=== PATIENT | male | born 1945 | race Caucasian/White ===

== ENCOUNTER 2016-10-10 07:04 | Emergency (ER) | payer MEDICARE ==
[2016-10-10 07:36] LABS: URINE MUCUS NONE SEEN (Up to 25%); URINE SQUAMOUS EPITHELIAL CELL NONE SEEN (<= 15/hpf); URINE WBC NONE SEEN (0-4/hpf)
[2016-10-10] MEDS ORDERED: KETOROLAC TROMETHAMINE 60 MG/2 ML VIAL ONE (07:40)
[2016-10-10 07:44] LABS: URINE BACTERIA NONE SEEN (<10/hpf)
--- NOTE | 2016-10-10 08:39 | CT REPORT ---
HISTORY: Left flank pain, hematuria COMPARISON: None. TECHNIQUE: This examination was performed using automated exposure control, adjustment of mA or kV according to patient size, and/or use of iterative reconstruction technique. Axial contiguous images of the abdome n and pelvis were obtained without oral or IV contrast, coronal reformat images also performed. FINDINGS: The kidneys are normal in size and shape bilaterally. 3 small stones in the left collecting system ar e noted, and measure 1 to 2 mm. There is mild hydronephrosis. There are 2 small stones in the left mi d ureter measuring up to 2 mm in maximum size. These are noted at the L4-5 level. No other stones on the left. On the right there are 3 small stones which are nonobstructing measuring 1 to 2 mm. No ureteral stone s. The bladder is normal. The visualized lung parenchyma and cardiac structures are unremarkable. There is no hepatic mass or intrahepatic biliary dilatation identified on limited noncontrast imaging . 2 large gallstones are noted. No evidence of acute cholecystitis. The spleen is unremarkable. Th ere is no pancreatic mass or ductal dilatation. The adrenal glands are unremarkable. The stomach, small bowel and large bowel are unremarkable. There is no free intraperitoneal fluid or gas. There is no mesenteric edema or inflammatory process. Vascular structures of the abdomen and pelvis are unremarkable. No pathologic adenopathy is identified. There is normal alignment to the l umbar spine. No hernia. IMPRESSION: 2 small stones measuring 1 and 2 mm in the left mid ureter at the level of L4-5 causing mild hydronep hrosis. 3 small, 1 to 2 mm stones noted within each kidney, not causing obstruction. Several large gallstones without evidence of acute cholecystitis. Final Electronic Signature: This report was electronically signed by Iain Rios MD on 10/10/2016 8 :36 AM. lawanda /
--- NOTE | 2016-10-10 09:23 | ER PHYSICIAN DOCUMENTATION ---
Physician Documentation [facility] Name:Jensen Mora Age:71 yrs Sex:Male :1945 Arrival Date:10/10/2016 Time:07:04 Bed4 Private MD:Torsten Pires EDJensen Person Disposition: 10/10/16 08:49 Discharged to Home/Self Care. Impression: Kidney Stone. - Condition is Good. - Discharge Instructions: KIDNEY STONE w/ Colic. - Prescriptions for Percocet 5- 325 mg Oral Tablet - take 1 tablet by ORAL route every 6 hours As needed; 20 tablet. Flomax 0.4 mg Oral - take 1 capsule by ORAL route once daily 1/2 hour following the same meal each day; 14 capsule. Zofran 4 mg Oral Tablet - take 1-2 tablet by ORAL route every 4-6 hours As needed; 10 tablet. - Medical Reconciliation form form. - Follow up: Torsten Pires MD; When: 2 - 3 days; Reason: Continuance of care. - Problem is new. - Symptoms have improved. HPI: 10/10 07:30 This 71 yrs old Male presents to ER via Private Vehicle with complaints of jm Abdominal Pain. 07:30 The patient presents with abdominal pain in the lower abdomen. Onset: The jm symptoms/episode began/occurred today. The symptoms do not radiate. Associated signs and symptoms: Pertinent negatives: diarrhea, dysuria. Associated signs and symptoms: Pertinent positives: hematuria. The symptoms are described as constant, sharp. Modifying factors: the symptoms are aggravated by nothing. Severity of pain: in the emergency department the pain is a 5 / 10. The patient has experienced a previous episode, many years ago, possible kidney stone. . The patient has not recently seen a physician. Pt has pain and hematuria, so he came to the ER. . Historical: - Allergies: No known drug Allergies; - Home Meds: 1. atorvastatin 20 mg oral tab 1 tab once daily for Hypercholesterolemia 2. metoprolol tartrate 25 mg oral tab 1 tab once daily for Acute Coronary Syndrome 3. aspirin 162 mg oral TbEC 1 tab once daily for Myocardial Reinfarction Prevention 4. metformin 500 mg oral TG24 2 tabs 2 times per day with meals for Type 2 Diabetes Mellitus 5. venlafaxine 75 mg oral cp24 1 cap every other day for Generalized Anxiety Disorder - PMHx: DEPRESSION; ANXIETY; HIGH CHOLESTEROL; MYOCARDIAL INFARCTION; CVA; DIABETES - NIDDM; Prostate Cancer; - PSHx: Stents; APPENDECTOMY; Tonsillectomy; prostatectomy; Fissurectomy; - Tetanus: < 10 years. - Ebola Screening: : Patient negative for fever greater than or equal to 101.5 degrees Fahrenheit, and additional compatible Ebola Virus Disease symptoms. Patient denies exposure to infectious person. Patient denies travel to an Ebola-affected area in the 21 days before illness onset. . - Immunization history: Pneumococcal vaccine is up to date, Flu Vaccine None. - Social history: Smoking status: Patient states was never smoker of tobacco. Patient/guardian denies using street drugs. ROS: 07:30 Constitutional: Negative for fever, malaise. jm 07:30 Cardiovascular: Negative for chest pain. 07:30 Respiratory: Negative for cough, shortness of breath. 07:30 Abdomen/GI: Positive for abdominal pain, Negative for nausea, vomiting, diarrhea, constipation. 07:30 Back: Negative for decreased range of motion, pain with movement. 07:30 : Positive for pelvic pain, hematuria, Negative for flank pain. 07:30 All other systems are negative. Exam: 07:30 Constitutional: The patient appears alert, awake, comfortable. jm 07:30 Eyes: Periorbital structures: appear normal, Conjunctiva: normal. 07:30 ENT: Mouth: is normal, Voice: is normal. 07:30 Neck: Thyroid: appears normal, Trachea: is midline with no obvious abnormalities. 07:30 Cardiovascular: Rate: bradycardic, Rhythm: regular. 07:30 Respiratory: Respirations: normal, Breath sounds: are normal. 07:30 Abdomen/GI: Bowel sounds: normal, Palpation: mild abdominal tenderness, in the suprapubic area, right lower quadrant and left lower quadrant. 07:30 Back: pain, is absent, CVA tenderness, is absent. 07:30 : CVA tenderness, is absent, Bladder: tenderness, that is mild. 07:30 Musculoskeletal/extremity: Circulation is intact in all extremities. Weight bearing: able to fully bear weight. 07:30 Neuro: Mentation: is normal, Memory: is normal. 07:30 Psych: Behavior/mood is pleasant, cooperative, Affect is calm. Vital Signs: 07:12 BP 121 / 74; Pulse 52; Resp 14; Temp 97.3; Pulse Ox 92% on R/A; Weight 88.9 kg; Height lp 5 ft. 10 in. (177.80 cm); Pain 6/10; 08:00 BP 114 / 63; Pulse 58; Resp 14; Pulse Ox 92% on R/A; lp 08:33 Pain 1/10; lp 08:50 BP 100 / 60; Pulse 58; Resp 16; Pulse Ox 95% on R/A; lp 08:50 BP 106 / 66; Pulse 56; Resp 16; Pulse Ox 91% on R/A; lp 07:12 Body Mass Index 28.12 (88.90 kg, 177.80 cm) lp MDM: 07:09 Patient medically screened. 07:30 Differential diagnosis: bowel obstruction, non-specific abd pain, Pyelonephritis, jm Ureterolithiasis, urinary tract infection. Data reviewed: vital signs, nurses notes, lab test result(s), radiologic studies, and as a result, I will discharge patient. Counseling: I had a detailed discussion with the patient and/or guardian regarding: the historical points, exam findings, and any diagnostic results supporting the discharge/admit diagnosis, lab results, radiology results, the need for outpatient follow up, with the patient's primary care provider, a urologist. Medication response: The patient's symptoms have improved, ED course: Report read- pt given home meds to deal w these tiny stones. . 10/10 07:45 Order name: URINE MICROSCOPIC; Complete Time: 08:49 EDMS 10/11 07:23 Order name: URINE CULTURE EDMS 10/10 08:24 Order name: [place] SCAN; [id number]; Complete Time: 08:49 EDMS Dispensed Medications: 07:33 Drug: Toradol 60 mg; Route: IM; Site: left deltoid; lp 08:33 Follow up: Response: No adverse reaction; Pain is decreased lp Signatures: Lolis Brandt RN RN Jensen Bonds MD MD jm
--- NOTE | 2016-10-10 09:23 | ER NURSING DOCUMENTATION ---
Nurse's Notes [facility] Name:Jensen Mora Age:71 yrs Sex:Male :1945 Arrival Date:10/10/2016 Time:07:04 Bed4 Private MD:Torsten Pires Diagnosis:Kidney Stone Presentation: 10/10 07:10 Acuity: TIBURCIO 3 lp 07:36 Presenting complaint: Patient states: Lower abd pain. lp 07:44 Transition of care: Home. lp 07:44 Method Of Arrival: Private Vehicle lp Triage Assessment: 07:49 General: Appears uncomfortable, Behavior is appropriate for age. Pain: Complains of lp pain in right lower quadrant and left lower quadrant Pain does not radiate. Pain currently is 6 out of 10 on a pain scale. Quality of pain is described as aching, Pain began 3 hours ago. EENT: No deficits noted. Neuro: Level of Consciousness is awake, alert, Oriented to person, place, time, Gage Designer are equal bilaterally. Cardiovascular: Heart tones S1 S2. Respiratory: Breath sounds are clear bilaterally. GI: Bowel sounds present X 4 quads. Abdomen is tender to palpation in right lower quadrant and left lower quadrant Reports lower abdominal pain. : Urine is yoav blood, Reports pain Denies burning with urination, inability to void. Derm: Skin is intact, is healthy with good turgor, Skin is Skin is pink, warm & dry. Musculoskeletal: No deficits noted. Historical: - Allergies: No known drug Allergies; - Home Meds: 1. atorvastatin 20 mg oral tab 1 tab once daily for Hypercholesterolemia 2. metoprolol tartrate 25 mg oral tab 1 tab once daily for Acute Coronary Syndrome 3. aspirin 162 mg oral TbEC 1 tab once daily for Myocardial Reinfarction Prevention 4. metformin 500 mg oral TG24 2 tabs 2 times per day with meals for Type 2 Diabetes Mellitus 5. venlafaxine 75 mg oral cp24 1 cap every other day for Generalized Anxiety Disorder - PMHx: DEPRESSION; ANXIETY; HIGH CHOLESTEROL; MYOCARDIAL INFARCTION; CVA; DIABETES - NIDDM; Prostate Cancer; - PSHx: Stents; APPENDECTOMY; Tonsillectomy; prostatectomy; Fissurectomy; - Tetanus: < 10 years. - Ebola Screening: : Patient negative for fever greater than or equal to 101.5 degrees Fahrenheit, and additional compatible Ebola Virus Disease symptoms. Patient denies exposure to infectious person. Patient denies travel to an Ebola-affected area in the 21 days before illness onset. . - Immunization history: Pneumococcal vaccine is up to date, Flu Vaccine None. - Social history: Smoking status: Patient states was never smoker of tobacco. Patient/guardian denies using street drugs. Screenin:53 Infectious Disease Risk None. Abuse screen: Denies threats or abuse. Denies injuries lp from another. Nutritional screening: No deficits noted. Assessment: 07:52 See Triage Assessment done by same RN. Cardiovascular: Heart tones S1 S2. GI: Bowel lp sounds present X 4 quads. : Urine is yoav blood. Vital Signs: 07:12 BP 121 / 74; Pulse 52; Resp 14; Temp 97.3; Pulse Ox 92% on R/A; Weight 88.9 kg; Height lp 5 ft. 10 in. (177.80 cm); Pain 6/10; 08:00 BP 114 / 63; Pulse 58; Resp 14; Pulse Ox 92% on R/A; lp 08:33 Pain 1/10; lp 08:50 BP 100 / 60; Pulse 58; Resp 16; Pulse Ox 95% on R/A; lp 08:50 BP 106 / 66; Pulse 56; Resp 16; Pulse Ox 91% on R/A; lp 07:12 Body Mass Index 28.12 (88.90 kg, 177.80 cm) lp ED Course: 07:04 Patient arrived in ED. ds 07:05 Torsten Pires MD is Private Physician. ds 07:10 Jensen Person MD is Attending Physician. jm 07:10 Lolis Brandt, RN is Primary Nurse. lp 07:10 Triage completed. lp 07:[address] Person notified. lp 07:53 Valuables Remains with patient Patient has correct armband on for positive lp identification. Placed in gown. Bed in low position. Call light in reach. Side rails up X 1. Pulse ox on. NIBP on. Door closed. Warm blanket given. 08:[address] ms 08:24 CAT SCAN; [id number] In Process Unspecified. EDMS 08:26 Patient moved back from [address]. tt 08:29 No apparent distress. Resting quietly. lp 08:49 Torsten Pires MD is Referral Physician. jm Administered Medications: 07:33 Drug: Toradol 60 mg; Route: IM; Site: left deltoid; lp 08:33 Follow up: Response: No adverse reaction; Pain is decreased lp Outcome: 08:49 Discharge ordered by . abdon 09:22 Discharged to home ambulatory. lp 09:22 Condition: improved 09:22 Instructed on discharge instructions, follow up and referral plans. medication usage. 09:22 Patient left the ED. lp Signatures: Dispatcher [employer] EDLolis Woodard RN RN lp Srot, Lydia, Reg Reg Jensen Soto MD MD jm [facility] Patricia Guerra tt
== END 2016-10-10 09:23 | disposition home or self-care (01) ==
LOC: ER 07:04
DX: N20.0 Calculus of kidney (principal); R31.9 Hematuria, unspecified; R00.1 Bradycardia, unspecified; Z85.46 Personal history of malignant neoplasm of prostate; Z79.899 Other long term (current) drug therapy
CPT/HCPCS: 74176; 81015; 87086; 96372; 99284; 99285; J1885